=== PATIENT | female | born 1985 | race Caucasian/White ===

== ENCOUNTER 2016-08-16 18:57 | Emergency (ER) | payer MEDICAID ==
[~2016-08-16] VITALS: Ht 157.5 cm; Wt 90.0 kg
[~2016-08-16 18:57] MED LIST: INVE6TAB2 PO; LORA-474 PO; NAPR-576 PO
[2016-08-16 18:59] VITALS: BP 123/76; PULSE 86; RESP 16; TEMP 97.8; O2SAT 99
--- NOTE | 2016-08-16 20:18 | PD ---
HPI . Suicidal ideation Chief Complaint: Psychiatric Symptoms Time Seen by Provider: 20:07 Travel History International Travel<30 days: No Contact w/Intl Traveler<30days: No Traveled to known affect area: No History of Present Illness HPI Patient presents private vehicle with the chief complaint of suicidal ideation. She states that her mother wants her Pizarro Acted because she keeps calling 911. She states that her mother thinks that she's crazy. I asked her why she keeps calling 911 and she tells me that it is because her foot hurts. She states that she has lesions on her left foot and ankle which she keeps picking at. Therefore, they will not heal. Patient states that her plan for suicide would be slicing her wrist. PFSH Past Medical History Arthritis: Yes (SOHEILA LEGS AND LEFT FOOT) Bipolar Disorder: Yes (past diagnosis as a teenaqger) Anxiety: Yes Depression: Yes Heart Rhythm Problems: Yes (MURMUR A CHILD) Cancer: No Cardiovascular Problems: Yes High Cholesterol: No Congestive Heart Failure: No Cerebrovascular Accident: No Diminished Hearing: No Endocrine: No Genitourinary: No Headaches: Yes Hypertension: Yes Immune Disorder: No Musculoskeletal: Yes Neurologic: Yes (BRAIN INJURY A BABY, O2 DEPRIVED) Psychiatric: Yes (ADD, BI POLAR) Reproductive: No Respiratory: No Migraines: No Seizures: No ?: Not LMP: 07/26/16 : 0 Para: 0 Miscarriage: 0 : 0 Past Surgical History Oral Surgery: Yes (2014 ORAL SURGERY - TEETH REMOVAL) Other Surgery: No Social History Alcohol Use: No Tobacco Use: No Substance Use: No (SUSPICIOUS FOR K2. PATIENT NOT SURE) Allergies-Medications (Allergen,Severity, Reaction): Coded Allergies: Ativan (Unverified Allergy, Severe, Psychosis, 08/16/16) Depakote (Unverified Allergy, Severe, SUICIDAL, 08/16/16) Xylocaine (Verified Allergy, Severe, STOPPED BREATHING, 08/16/16) Tylenol/Codeine (Verified Allergy, Intermediate, RASH, 08/16/16) Haldol (Unverified Adverse Reaction, Severe, ANXIETY, 08/16/16) Seroquel (Unverified Adverse Reaction, Severe, Psychosis, 08/16/16) Reported Meds & Prescriptions Reported Meds & Active Scripts Active Reported Invega (Paliperidone) 6 Mg Tab 6 Mg PO DAILY Ativan (Lorazepam) 1 Mg Tab 1 Mg PO Q4 As needed for severe anxiety or dyspnea Naproxen 500 Mg Tab 500 Mg PO TID Review of Systems Except as stated in HPI: all other systems reviewed are Neg Skin: Positive Lesions Psychiatric: Positive: Depression, Suicidal Ideations Physical Exam Narrative GENERAL: The patient appears to be mentally challenged. SKIN: Warm and dry. She has numerous lesions on her left lower extremity as well as on her left forearm. Some of them have the appearance of cigarette teague. She states that that is not the case. HEAD: Atraumatic. Normocephalic. EYES: Pupils equal and round. Extraocular movements are intact. ENT: No nasal bleeding or discharge. Mucous membranes pink and moist. NECK: Trachea midline. Neck is supple. CARDIOVASCULAR: Regular rate and rhythm. RESPIRATORY: No accessory muscle use. MUSCULOSKELETAL: No obvious deformities. No edema. NEUROLOGICAL: Awake and alert. No obvious cranial nerve deficits. Motor grossly within normal limits. Normal speech. PSYCHIATRIC: Mentally challenged. Judgment poor. Data Data Last Documented VS Vital Signs Date Time Temp Pulse Resp B/P Pulse Ox O2 Delivery O2 Flow Rate FiO2 08/16/16 20:15 18 08/16/16 18:59 97.8 86 123/76 99 Room Air Orders Complete Blood Count With Diff (08/16/16 20:10) Basic Metabolic Panel (Bmp) (08/16/16 20:10) Psych Screen (08/16/16 20:10) Drug Screen, Random Urine (08/16/16 20:10) MDM Medical Decision Making Medical Screen Exam Complete: Yes Emergency Medical Condition: Yes Differential Diagnosis Differential diagnosis includes but is not limited to depression with suicidal gesture, suicide attempt, suicidal ideation, attention seeking behavior. Narrative Course Patient presents for evaluation of suicidal ideation. Diagnosis Primary Impression: Suicidal ideation Additional Impression: Benign skin lesion of multiple sites Additional Instructions: Neosporin ointment to the skin lesions on the leg and arm. Condition: Stable Beata Rodarte MD Aug 16, 2016 20:18
[2016-08-16] MEDS ORDERED: CELE20TA PO (21:05)
[2016-08-16 21:46] LABS: AUTOMATED NEUTROPHIL # 7.4 TH/MM3 (1.8-7.7); BASOPHIL % 0.4 % (0.0-2.0); EOSINOPHIL # 0.1 TH/MM3 (0-0.4); HEMATOCRIT 32.5 % (35.0-46.0); HEMO FLAGS DIFF FINAL; LYMPH % 23.1 % (9.0-44.0); LYMPHOCYTE # 2.5 TH/MM3 (1.0-4.8); MEAN CELL VOLUME 78.2 FL (80.0-100.0); MEAN CORPUSCULAR HEMOGLOBIN 26.8 PG (27.0-34.0); MEAN CORPUSCULAR HGB CONC 34.2 % (32.0-36.0); NEUT % 69.5 % (16.0-70.0); PLATELET COUNT 218 TH/MM3 (150-450); RED BLOOD COUNT 4.16 MIL/MM3 (4.00-5.30); RED CELL DISTRIBUTION WIDTH 15.1 % (11.6-17.2); WHITE BLOOD COUNT 10.7 TH/MM3 (4.0-11.0)
[2016-08-16 21:56] LABS: AMPHETAMINE, URINE NEG (NEG); BARBITURATES, URINE NEG (NEG); COCAINE, URINE NEG (NEG)
[2016-08-16 22:07] LABS: BICARBONATE 28.7 MEQ/L (21.0-32.0); POTASSIUM 4.2 MEQ/L (3.5-5.1)
--- NOTE | 2016-08-16 23:56 | PD ---
Data Data Last Documented VS Vital Signs Date Time Temp Pulse Resp B/P Pulse Ox O2 Delivery O2 Flow Rate FiO2 08/16/16 20:15 18 08/16/16 18:59 97.8 86 123/76 99 Room Air Orders Complete Blood Count With Diff (08/16/16 20:10) Basic Metabolic Panel (Bmp) (08/16/16 20:10) Psych Screen (08/16/16 20:10) Drug Screen, Random Urine (08/16/16 20:10) Labs Laboratory Tests Test 08/16/16 08/16/16 20:19 21:00 Urine Opiates Screen NEG Urine Barbiturates Screen NEG Urine Amphetamines Screen NEG Urine Benzodiazepines Screen NEG Urine Cocaine Screen NEG Urine Cannabinoids Screen POS White Blood Count 10.7 TH/MM3 Red Blood Count 4.16 MIL/MM3 Hemoglobin 11.1 GM/DL Hematocrit 32.5 % Mean Corpuscular Volume 78.2 FL Mean Corpuscular Hemoglobin 26.8 PG Mean Corpuscular Hemoglobin 34.2 % Concent Red Cell Distribution Width 15.1 % Platelet Count 218 TH/MM3 Mean Platelet Volume 8.0 FL Neutrophils (%) (Auto) 69.5 % Lymphocytes (%) (Auto) 23.1 % Monocytes (%) (Auto) 6.0 % Eosinophils (%) (Auto) 1.0 % Basophils (%) (Auto) 0.4 % Neutrophils # (Auto) 7.4 TH/MM3 Lymphocytes # (Auto) 2.5 TH/MM3 Monocytes # (Auto) 0.6 TH/MM3 Eosinophils # (Auto) 0.1 TH/MM3 Basophils # (Auto) 0.0 TH/MM3 CBC Comment DIFF FINAL Differential Comment Sodium Level 138 MEQ/L Potassium Level 4.2 MEQ/L Chloride Level 103 MEQ/L Carbon Dioxide Level 28.7 MEQ/L Anion Gap 6 MEQ/L Blood Urea Nitrogen 14 MG/DL Creatinine 0.78 MG/DL Estimat Glomerular Filtration 86 ML/MIN Rate Random Glucose 96 MG/DL Calcium Level 8.6 MG/DL MDM Supervised Visit with AC: No Narrative Course 31 year-old woman with suicidal ideation, seen by psych, cleared for discharge. Family is comfortable. Diagnosis Primary Impression: Suicidal ideation Additional Impression: Benign skin lesion of multiple sites Additional Instruction: Neosporin ointment to the skin lesions on the leg and arm. Condition: Stable Checo Pierre MD Aug 16, 2016 23:56
== END 2016-08-17 00:15 | disposition home or self-care (01) ==
LOC: NEPD 18:57 → NEPB 08-17 00:15
DX: F39 Unspecified mood [affective] disorder (principal); R45.851 Suicidal ideations; L98.9 Disorder of the skin and subcutaneous tissue, unspecified
CPT/HCPCS: 80048; 80307; 85025; 99284

== ENCOUNTER 2016-09-26 18:10 | Emergency (ER) | payer MEDICAID, OTHER ==
[~2016-09-26] VITALS: Ht 160 cm; Wt 100.0 kg
[~2016-09-26 18:10] MED LIST changes: +CELE20TA PO; -INVE6TAB2 PO; -LORA-474 PO; -NAPR-576 PO
[2016-09-26 18:38] VITALS: BP 127/85; PULSE 84; RESP 16; TEMP 97.6; O2SAT 97
--- NOTE | 2016-09-26 19:03 | PD ---
HPI Chief Complaint: Psychiatric Symptoms Time Seen by Provider: 18:56 Travel History International Travel<30 days: No Contact w/Intl Traveler<30days: No Traveled to known affect area: No History of Present Illness HPI The patient is a 31-year-old female who presents to the emergency department as a Pizarro act. The patient was seen her psychiatrist earlier today when she stated she had thoughts of suicide earlier in the week and had a plan by cutting her wrists. However, the patient states that was earlier in the week and she is not currently suicidal. The patient was placed under a Pizarro act and sent to the emergency department. The patient does have a history of bipolar affective disorder and ADHD, per her report, and currently takes Wellbutrin and Celexa. The patient denies any alcohol or illicit drug use. The patient denies any hallucinations, delusions, or homicidal ideation. PFSH Past Medical History Arthritis: Yes (SOHEILA LEGS AND LEFT FOOT) Bipolar Disorder: Yes (past diagnosis as a teenaqger) Anxiety: Yes Depression: Yes Heart Rhythm Problems: Yes (MURMUR A CHILD) Cancer: No Cardiovascular Problems: Yes High Cholesterol: No Congestive Heart Failure: No Cerebrovascular Accident: No Diminished Hearing: No Endocrine: No Genitourinary: No Headaches: Yes Hypertension: Yes Immune Disorder: No Musculoskeletal: Yes Neurologic: Yes (BRAIN INJURY A BABY, O2 DEPRIVED) Psychiatric: Yes (ADD, BI POLAR) Reproductive: No Respiratory: No Migraines: No Seizures: No : 0 Para: 0 Miscarriage: 0 : 0 Past Surgical History Oral Surgery: Yes (2014 ORAL SURGERY - TEETH REMOVAL) Other Surgery: No Social History Alcohol Use: No Tobacco Use: No Substance Use: Yes Allergies-Medications (Allergen,Severity, Reaction): Coded Allergies: Ativan (Unverified Allergy, Severe, Psychosis, 08/16/16) Depakote (Unverified Allergy, Severe, SUICIDAL, 08/16/16) Xylocaine (Verified Allergy, Severe, STOPPED BREATHING, 08/16/16) Tylenol/Codeine (Verified Allergy, Intermediate, RASH, 08/16/16) Haldol (Unverified Adverse Reaction, Severe, ANXIETY, 08/16/16) Seroquel (Unverified Adverse Reaction, Severe, Psychosis, 08/16/16) Reported Meds & Prescriptions Reported Meds & Active Scripts Active Reported Celexa (Citalopram Hydrobromide) 20 Mg Tab 20 Mg PO DAILY Review of Systems Except as stated in HPI: all other systems reviewed are Neg General / Constitutional: No: Fever Cardiovascular: No: Chest Pain or Discomfort Respiratory: No: Shortness of Breath Gastrointestinal: No: Nausea, Vomiting, Abdominal Pain Musculoskeletal: No: Myalgias, Arthralgias Psychiatric: Positive: Depression, Suicidal Ideations (earlier in the week, currently resolved), Mood Disorder, No: Substance Abuse, Homicidal Ideation Physical Exam Narrative GENERAL: Awake, alert, pleasant 31-year-old female who appears her stated age and is in no acute respiratory distress. SKIN: Focused skin assessment warm/dry. HEAD: Atraumatic. Normocephalic. EYES: Pupils equal and round. No scleral icterus. No injection or drainage. ENT: No nasal bleeding or discharge. Mucous membranes pink and moist. NECK: Trachea midline. No JVD. CARDIOVASCULAR: Regular rate and rhythm. No murmur appreciated. RESPIRATORY: No accessory muscle use. Clear to auscultation. Breath sounds equal bilaterally. GASTROINTESTINAL: Abdomen soft, non-tender, nondistended. No rebound tenderness. MUSCULOSKELETAL: No obvious deformities. No clubbing. No cyanosis. No edema. NEUROLOGICAL: Awake and alert. No obvious cranial nerve deficits. Motor grossly within normal limits. Normal speech. Nonfocal. Oriented 4. Follows commands without difficulty. PSYCHIATRIC: Appropriate mood and affect; insight and judgment normal. Data Data Last Documented VS Vital Signs Date Time Temp Pulse Resp B/P Pulse Ox O2 Delivery O2 Flow Rate FiO2 09/26/16 18:38 97.6 84 16 127/85 97 Orders Complete Blood Count With Diff (09/26/16 19:00) Comprehensive Metabolic Panel (09/26/16 19:00) Urinalysis - C+S If Indicated (09/26/16 19:00) Psych Screen (09/26/16 19:00) Drug Screen, Random Urine (09/26/16 19:00) Alcohol (Ethanol) (09/26/16 19:00) MDM Medical Decision Making Medical Screen Exam Complete: Yes Emergency Medical Condition: Yes Medical Record Reviewed: Yes Differential Diagnosis Differential diagnosis includes bipolar affective disorder, mood disorder, depressive disorder NOS, suicidal ideation, ADHD, oppositional fine disorder, substance induced mood disorder. Narrative Course Labs were ordered, however, patient refused labs. The patient is alert and oriented 4, is able follow commands. Therefore, labs were not drawn as patient refused and she is alert and oriented. Psychiatric evaluation was ordered. Disposition as per psych. Diagnosis Primary Impression: Depressive disorder Condition: Stable Fredi Conway MD September 26, 2016 19:03
[2016-09-26 19:14] VITALS: BP 123/80; PULSE 89; RESP 16; TEMP 98.3; O2SAT 98
[2016-09-26] MEDS ORDERED: BUPR150XL PO (19:14)
[2016-09-26 21:15] VITALS: BP 133/94; PULSE 91; RESP 18; TEMP 97.7; O2SAT 98
[2016-09-26 21:59] LABS: BLOOD, URINE SMALL (NEG); COMMENT (UR) CULT NOT INDICATED; CULTURE IF INDICATED CULT NOT INDICATED; GLUCOSE,URINE NEG (NEG); HYALINE CAST, URINE 5 /lpf (RARE); KETONE, URINE TRACE mg/dL (NEG); MUCUS URINE MOD /lpf (OCC); NITRITE,URINE NEG (NEG); SQUAMOUS EPITHELIAL CELL URINE 43 /hpf (0-5); URINE COLOR YELLOW (YELLW/STRAW)
[2016-09-26 22:02] LABS: AMPHETAMINE, URINE NEG (NEG); BARBITURATES, URINE NEG (NEG); COCAINE, URINE NEG (NEG)
[2016-09-26 22:09] LABS: AUTOMATED NEUTROPHIL # 8.5 TH/MM3 (1.8-7.7); BASOPHIL % 0.3 % (0.0-2.0); EOSINOPHIL # 0.2 TH/MM3 (0-0.4); EOSINOPHIL % 1.4 % (0.0-4.0); HEMATOCRIT 35.4 % (35.0-46.0); HEMO FLAGS DIFF FINAL; LYMPH % 21.3 % (9.0-44.0); LYMPHOCYTE # 2.5 TH/MM3 (1.0-4.8); MEAN CELL VOLUME 79.4 FL (80.0-100.0); MEAN CORPUSCULAR HEMOGLOBIN 25.4 PG (27.0-34.0); MONO % 5.2 % (0.0-8.0); NEUT % 71.8 % (16.0-70.0); PLATELET COUNT 182 TH/MM3 (150-450); RED BLOOD COUNT 4.46 MIL/MM3 (4.00-5.30); RED CELL DISTRIBUTION WIDTH 15.4 % (11.6-17.2); WHITE BLOOD COUNT 11.8 TH/MM3 (4.0-11.0)
[2016-09-26] MEDS ORDERED: DIPH25CA PO (22:12)
[2016-09-26 22:35] LABS: ANION GAP 11 MEQ/L (5-15); AST (GOT) 16 U/L (15-37); BICARBONATE 24.4 MEQ/L (21.0-32.0); BLOOD UREA NITROGEN 13 MG/DL (7-18); CHLORIDE 102 MEQ/L (98-107); GLOMERULAR FILTRATION RATE 84 ML/MIN (>89); POTASSIUM 3.8 MEQ/L (3.5-5.1); SODIUM (NA) 137 MEQ/L (136-145)
[2016-09-26 22:40] LABS: ALKALINE PHOSPHATASE 85 U/L (45-117); ALT (GPT) 31 U/L (10-53); TOTAL BILIRUBIN ADULT 0.3 MG/DL (0.2-1.0)
[2016-09-26 22:57] VITALS: BP 129/68; PULSE 81; RESP 18; O2SAT 99
[2016-09-26] MEDS ORDERED: diphenhydrAMINE HCL 50 MG CAP PO ONE (23:00)
[2016-09-27 02:26] VITALS: BP 116/63; PULSE 83; RESP 18; O2SAT 98
[2016-09-27 06:11] VITALS: BP 103/56; PULSE 85; RESP 18; O2SAT 99
[2016-09-27] MEDS ORDERED: IBUPROFEN 800 MG TAB PO ONE (06:30)
== END 2016-09-27 10:39 | disposition home or self-care (01) ==
LOC: NEDAMB 18:10 → NEPJ 09-27 10:39
DX: F31.9 Bipolar disorder, unspecified (principal); Z79.899 Other long term (current) drug therapy
CPT/HCPCS: 80053; 80307; 81001; 85025; 99284; Q0163

== ENCOUNTER 2017-07-11 17:06 | Emergency (ER) | payer MEDICAID, OTHER ==
[~2017-07-11] VITALS: Ht 152.4 cm; Wt 100.0 kg
[~2017-07-11 17:06] MED LIST changes: +BUPR150XL PO; +DIPH25CA PO
[2017-07-11 17:17] VITALS: BP 132/76; PULSE 95; RESP 18; TEMP 97.3; O2SAT 98
--- NOTE | 2017-07-11 17:57 | PD ---
HPI Chief Complaint: Psychiatric Symptoms Time Seen by Provider: 17:31 Travel History International Travel<30 days: No Contact w/Intl Traveler<30days: No Traveled to known affect area: No History of Present Illness HPI Patient is a 32 year old female with history of psychiatric illness who comes in because she has been hearing voices lately. She says she has had increased stress lately and is having a hard time handling it. She was on Risperdal, but has not taken it in 2 years. She went to her psychiatrist who told her to try Melatonin to help her sleep because she did not want to restart her risperdal due to concerns for weight gain. Patient denies homicidal or suicidal ideation. She is requesting admission to the 4th floor. She has no medical complaints at this time. Her symptoms have been going on for a few weeks now. PFSH Past Medical History Arthritis: Yes (SOHEILA LEGS AND LEFT FOOT) Bipolar Disorder: Yes (past diagnosis as a teenaqger) Anxiety: Yes Depression: Yes Heart Rhythm Problems: Yes (MURMUR A CHILD) Cancer: No Cardiovascular Problems: Yes High Cholesterol: No Congestive Heart Failure: No Cerebrovascular Accident: No Diminished Hearing: No Endocrine: No Gastrointestinal Disorders: No Genitourinary: No Headaches: Yes Hypertension: Yes Immune Disorder: No Implanted Vascular Access Dvce: No Musculoskeletal: Yes Neurologic: Yes (BRAIN INJURY A BABY, O2 DEPRIVED) Psychiatric: Yes (ADD, BI POLAR) Reproductive: No Respiratory: No Migraines: No Seizures: No : 0 Para: 0 Miscarriage: 0 : 0 Past Surgical History Oral Surgery: Yes (2014 ORAL SURGERY - TEETH REMOVAL) Other Surgery: No Social History Alcohol Use: No Tobacco Use: Yes Substance Use: Yes Allergies-Medications (Allergen,Severity, Reaction): Coded Allergies: divalproex sodium (Unverified Allergy, Severe, SUICIDAL, 12/23/16) lidocaine (Unverified Allergy, Severe, STOPPED BREATHING, 12/23/16) lorazepam (Unverified Allergy, Severe, Psychosis, 12/23/16) transparent dressing (Unverified Allergy, Severe, STOPPED BREATHING, ) acetaminophen (Unverified Allergy, Intermediate, RASH, 12/23/16) codeine (Unverified Allergy, Intermediate, RASH, 12/23/16) haloperidol (Unverified Adverse Reaction, Severe, ANXIETY, 12/23/16) quetiapine (Unverified Adverse Reaction, Severe, Psychosis, 12/23/16) Reported Meds & Prescriptions Reported Meds & Active Scripts Active Reported Diphenhydramine (Diphenhydramine HCl) 25 Mg Cap 50 Mg PO HS PRN Wellbutrin Xl 24 HR (Bupropion HCl) 150 Mg Tab 150 Mg PO DAILY Celexa (Citalopram Hydrobromide) 20 Mg Tab 20 Mg PO DAILY Review of Systems Except as stated in HPI: all other systems reviewed are Neg General / Constitutional: No: Fever, Chills Eyes: No: Blurred Vision HENT: No: Headaches Cardiovascular: No: Chest Pain or Discomfort Respiratory: No: Shortness of Breath Gastrointestinal: No: Nausea, Vomiting Musculoskeletal: No: Myalgias Skin: No Rash, No Itching Neurologic: No: Weakness, Dizziness Psychiatric: No: Suicidal Ideations Physical Exam Exam Limitations: Refused Narrative refused Data Data Last Documented VS Vital Signs Date Time Temp Pulse Resp B/P (MAP) Pulse Ox O2 Delivery O2 Flow Rate FiO2 07/11/17 17:17 97.3 95 18 132/76 (94) 98 MDM Medical Decision Making Medical Screen Exam Complete: Yes Emergency Medical Condition: Yes Medical Record Reviewed: Yes Differential Diagnosis bipolar disorder vs depression vs psychosis Narrative Course Patient is a 32 year old female who comes in because she is hearing voices. She is requesting admission to the 4th floor. I explained to her that we had to go through the medical clearance process and a psych screener would come and talk to her and that I had no control over where she would be if she in fact required admission. She denies any homicidal or suicidal ideation. She lives with her mother, who is with her and feels safe taking her home. She refused any testing or exam and left the ED. Diagnosis Primary Impression: Depressive disorder Disposition: 07 AGAINST MEDICAL ADVICE Lien Griffin MD Jul 11, 2017 17:57
== END 2017-07-11 18:08 | disposition left against medical advice (07) ==
LOC: NEPD 17:06
DX: F32.9 Major depressive disorder, single episode, unspecified (principal); M19.072 Primary osteoarthritis, left ankle and foot; F41.9 Anxiety disorder, unspecified; F98.8 Other specified behavioral and emotional disorders with onset usually occurring in childhood and adolescence; F31.9 Bipolar disorder, unspecified; I10 Essential (primary) hypertension; Z79.899 Other long term (current) drug therapy; Z88.5 Allergy status to narcotic agent; Z72.0 Tobacco use
CPT/HCPCS: 99281

== ENCOUNTER 2017-10-04 16:38 | Emergency (ER) | payer MEDICAID ==
[~2017-10-04] VITALS: Ht 157.5 cm; Wt 100.0 kg
[2017-10-04 16:42] VITALS: BP 131/74; PULSE 94; RESP 20; TEMP 97.6; O2SAT 99
[2017-10-04] MEDS ORDERED: BREX1TAB3 PO (17:05)
--- NOTE | 2017-10-04 18:24 | PD ---
HPI Chief Complaint: Suicide Ideation/Attempt Time Seen by Provider: 17:42 Travel History International Travel<30 days: No Contact w/Intl Traveler<30days: No Traveled to known affect area: No History of Present Illness HPI The patient was seen and examined in the presence of the nurse. This patient has history of bipolar and ADHD. She complains of depression. Duration is 1 week. Severity is moderate. She is not feeling suicidal. She has no suicidal plan. She thinks her Celexa is not working and wants to discuss medication changes with psychiatry. She did not have any physical complaints. No alleviating factors. No exacerbating factors. PFSH Past Medical History Arthritis: Yes (SOHEILA LEGS AND LEFT FOOT) Bipolar Disorder: Yes (past diagnosis as a teenaqger) Anxiety: Yes Depression: Yes Heart Rhythm Problems: Yes (MURMUR A CHILD) Cancer: No Cardiovascular Problems: Yes High Cholesterol: No Congestive Heart Failure: No Cerebrovascular Accident: No Diminished Hearing: No Endocrine: No Gastrointestinal Disorders: No Genitourinary: No Headaches: Yes Hypertension: Yes Immune Disorder: No Implanted Vascular Access Dvce: No Musculoskeletal: Yes Neurologic: Yes (BRAIN INJURY A BABY, O2 DEPRIVED) Psychiatric: Yes (ADD, BI POLAR) Reproductive: No Respiratory: No Migraines: No Seizures: No Influenza Vaccination: Yes ?: Not LMP: ONE WEEK AGO : 0 Para: 0 Miscarriage: 0 : 0 Past Surgical History Oral Surgery: Yes (2014 ORAL SURGERY - TEETH REMOVAL) Other Surgery: No Social History Alcohol Use: No Tobacco Use: Yes (less than half a pack) Substance Use: Yes (marijuana) Allergies-Medications (Allergen,Severity, Reaction): Coded Allergies: divalproex sodium (Unverified Allergy, Severe, SUICIDAL, 10/04/17) lidocaine (Unverified Allergy, Severe, STOPPED BREATHING, 10/04/17) lorazepam (Unverified Allergy, Severe, Psychosis, 10/04/17) transparent dressing (Unverified Allergy, Severe, STOPPED BREATHING, ) acetaminophen (Unverified Allergy, Intermediate, RASH, 10/04/17) codeine (Unverified Allergy, Intermediate, RASH, 10/04/17) haloperidol (Unverified Adverse Reaction, Severe, ANXIETY, 10/04/17) quetiapine (Unverified Adverse Reaction, Severe, Psychosis, 10/04/17) Reported Meds & Prescriptions Reported Meds & Active Scripts Active Reported Rexulti (Brexpiprazole) 1 Mg Tab 1 Mg PO HS Diphenhydramine (Diphenhydramine HCl) 25 Mg Cap 50 Mg PO HS PRN Celexa (Citalopram Hydrobromide) 20 Mg Tab 20 Mg PO DAILY Review of Systems General / Constitutional: No: Fever Eyes: No: Visual changes HENT: No: Headaches Cardiovascular: No: Chest Pain or Discomfort Respiratory: No: Shortness of Breath Gastrointestinal: No: Abdominal Pain Genitourinary: No: Dysuria Musculoskeletal: No: Pain Skin: No Rash Neurologic: No: Weakness Psychiatric: Positive: Depression Endocrine: No: Polydipsia Hematologic/Lymphatic: No: Easy Bruising Physical Exam Narrative GENERAL: Well-nourished, well-developed patient in no apparent distress. SKIN: Focused skin assessment reveals no rash and nodules. Skin is Warm and dry. HEAD: Atraumatic. Normocephalic. EYES: Pupils equal and round. No scleral icterus. No injection or drainage. ENT: No nasal bleeding or discharge. Mucous membranes pink and moist. NECK: Trachea midline. No JVD. CARDIOVASCULAR: Regular rate and rhythm. No murmur appreciated. RESPIRATORY: No accessory muscle use. Clear to auscultation. Breath sounds equal bilaterally. GASTROINTESTINAL: Abdomen soft, non-tender, nondistended. Hepatic and splenic margins not palpable. MUSCULOSKELETAL: No obvious deformities. No clubbing. No cyanosis. No edema. NEUROLOGICAL: Awake and alert. No obvious cranial nerve deficits. Motor grossly within normal limits. Normal speech. PSYCHIATRIC: depressed mood and flat affect; insight and judgment reduced . Data Data Last Documented VS Vital Signs Date Time Temp Pulse Resp B/P (MAP) Pulse Ox O2 Delivery O2 Flow Rate FiO2 10/04/17 16:42 97.6 94 20 131/74 (93) 99 MDM Medical Decision Making Medical Screen Exam Complete: Yes Emergency Medical Condition: Yes Medical Record Reviewed: Yes Differential Diagnosis Depression, adjustment disorder, bipolar Narrative Course I have reviewed the patient's electronic medical record. Patient has been here multiple times for psychiatric problems over the last couple of years She has no physical complaints. She refuses medical evaluation. She refuses labs and urine studies. She just wants psychiatry evaluation. However, she wants this immediately. She does not want to wait. I advised her I would order a psychiatric screening which she declines to wait. She is voluntary. She is not suicidal. Her sister brought her here and is at bedside for the discussion. Her sister is going to take her home. She refused to wait on paperwork or discharge. She just walked out. Diagnosis Primary Impression: Depressive disorder Disposition: 07 AGAINST MEDICAL ADVICE Michel Herzog MD October 04, 2017 18:24
== END 2017-10-04 18:23 | disposition left against medical advice (07) ==
LOC: NEPD 16:38
DX: F31.9 Bipolar disorder, unspecified (principal); F90.9 Attention-deficit hyperactivity disorder, unspecified type; F12.90 Cannabis use, unspecified, uncomplicated; Z72.0 Tobacco use
CPT/HCPCS: 99281